=== PATIENT | female | born 1960 | race Caucasian/White ===

== ENCOUNTER 2021-01-02 19:13 | Observation (INO) | payer BC ==
[2021-01-02 19:47] LABS: CHLORIDE,CL 102 mmol/L (98-107); SODIUM,NA 138 mmol/L (136-145)
[2021-01-02] MEDS ORDERED: Ketorolac 15 MG/ML SDV IM ONE (19:47)
[2021-01-02] MEDS ORDERED: Ondansetron 4 MG/2 ML SDV IVPUSH ONE (19:47)
--- NOTE | 2021-01-02 20:45 | EDM.PDOC ---
ED HPI GENERAL MEDICAL PROBLEM - General Chief Complaint: Flank Pain Stated Complaint: kidney stones Time Seen by Provider: 01/02/21 19:40 Source of Information: Reports: Patient History Limitations: Reports: No Limitations - History of Present Illness INITIAL COMMENTS - FREE TEXT/NARRATIVE: Right sided flank and abdominal pain today. Nausea and emesis. Seen at [facility] today and diagnosed with probable kidney stone. Only medicine prescribed was Cipro. No mention of UTI to patient. No medications dispensed for nausea/pain or Flomax. Patient denies fever/chills. No loose stools. No other acute changes reported. 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 - Related Data Allergies Allergy/AdvReac Type Severity Reaction Status Date / Time Penicillins Allergy Rash Verified 01/02/21 19:58 Home Meds: Home Meds Ciprofloxacin HCl [Cipro] 500 mg PO DAILY 01/02/21 [History] lisinopriL [Lisinopril] 10 mg PO DAILY 01/02/21 [History] Past Medical History Cardiovascular History: Reports: Pulmonary Hypertension, Other (See Below) Other Cardiovascular History: "irregular heart beat" Respiratory History: Reports: COPD, Other (See Below) (long time smoker, pulmonary fibrosis on previous xray) Gastrointestinal History: Reports: [employer] History: Reports: Musculoskeletal History: Reports: Arthritis, Other (See Below) Other Musculoskeletal History: scoliosis - Infectious Disease History Infectious Disease History: Reports: Chicken Pox - Past Surgical History HEENT Surgical History: Reports: Tonsillectomy Cardiovascular Surgical History: Reports: None Respiratory Surgical History: Reports: None GI Surgical History: Reports: None Musculoskeletal Surgical History: Reports: None Social & Family History - Tobacco Use Tobacco Use Status *Q: Former Tobacco User Used Tobacco, but Quit: Yes Month/Year Tobacco Last Used: 01/01 - Caffeine Use Caffeine Use: Reports: Soda - Recreational Drug Use Recreational Drug Use: No - Living Situation & Occupation Living situation: Reports: , Occupation: Unemployed ED ROS GENERAL - Review of Systems Review Of Systems: See Below Constitutional: Reports: Decreased Appetite. Denies: Fever, Chills, Weakness, Fatigue, Night Sweats, Diaphoresis HEENT: Reports: Other (no acute changes) Respiratory: Denies: Shortness of Breath, Wheezing, Pleuritic Chest Pain, Cough, Sputum, Hemoptysis Cardiovascular: Denies: Chest Pain, Lightheadedness, Palpitations, Syncope GI/Abdominal: Reports: Abdominal Pain, Decreased Appetite, Nausea, Vomiting. Denies: Bloody Stool, Constipation, Diarrhea, Hematemesis : Reports: Hematuria, Urgency Musculoskeletal: Reports: Other (no acute changes from baseline) Skin: Reports: No Symptoms Neurological: Reports: No Symptoms Psychiatric: Reports: No Symptoms ED EXAM, GENERAL - Physical Exam Exam: See Below Free Text/Narrative:: Looks much older than stated age. Exam Limited By: No Limitations General Appearance: Alert, WD/WN, No Apparent Distress Eye Exam: Bilateral Eye: EOMI, PERRL Ears: Hearing Grossly Normal Nose: No: Nasal Deformity, Nasal Swelling, Nasal Drainage Throat/Mouth: Normal Lips, Normal Voice, No Airway Compromise Head: Atraumatic, Normocephalic Neck: Supple, Non-Tender, Full Range of Motion Respiratory/Chest: No Respiratory Distress, Lungs Clear, Normal Breath Sounds, No Accessory Muscle Use, Chest Non-Tender Cardiovascular: Regular Rate, Rhythm, No Murmur GI/Abdominal: Soft, No Distention, Tender (diffuse abd discomfort with palpation, more prominent right side), Abnormal Bowel Sounds (diminished) (Female) Exam: Deferred Rectal (Female) Exam: Deferred Back Exam: CVA Tenderness (R) Extremities: Normal Inspection, Normal Capillary Refill Neurological: Alert, Oriented, Normal Cognition, No Motor/Sensory Deficits Psychiatric: Normal Affect, Normal Mood Skin Exam: Warm, Dry, Intact, Normal Color Course - Vital Signs Last Recorded V/S: Last Vital Signs Temp 99.2 C H 01/02/21 20:52 Pulse 65 01/02/21 20:52 Resp 16 01/02/21 20:52 BP 151/75 H 01/02/21 20:52 Pulse Ox 99 01/02/21 20:52 - Orders/Labs/Meds Orders: Active Orders 24 hr Category Date Time Status Patient Status [ADT] Routine ADT 01/02/21 21:07 Active Oxygen Therapy [RC] PRN Care 01/02/21 21:10 Active Pulse Oximetry [RC] PRN Care 01/02/21 21:09 Active Strain Urine [RC] ASDIRECTED Care 01/02/21 21:16 Active Up ad Alina [RC] ASDIRECTED Care 01/02/21 21:07 Active Vital Signs [RC] Q6HR Care 01/02/21 21:07 Active Regular Diet [DIET] Diet 01/03/21 Breakfast Active Abdomen Pelvis wo Cont [CT] Stat Exams 01/02/21 19:28 Taken BASIC METABOLIC PANEL,BMP [CHEM] AM Lab 01/03/21 05:15 Ordered CBC WITH AUTO DIFF [HEME] AM Lab 01/03/21 05:15 Ordered CULTURE URINE [RM] Routine Lab 01/02/21 21:12 Ordered MAGNESIUM [CHEM] AM Lab 01/03/21 05:11 Ordered Acetaminophen [TylenoL] Med 01/02/21 21:07 Active 650 mg PO Q4H PRN Calcium Carbonate [Tums] Med 01/02/21 21:07 Active 500 mg PO Q4H PRN HYDROmorphone [Dilaudid] Med 01/02/21 21:16 Active 0.25 mg IVPUSH Q2H PRN Ketorolac [Toradol] Med 01/03/21 02:00 Active 15 mg IVPUSH Q6H Magnesium Hydroxide [Milk of Magnesia] Med 01/02/21 21:07 Active 30 ml PO BID PRN Nicotine [Habitrol] Med 01/02/21 21:15 Active 21 mg TRDERM DAILY Ondansetron [Zofran] Med 01/03/21 02:00 Active 4 mg IVPUSH Q6H Sodium Chloride 0.9% [Normal Saline] 1,000 ml Med 01/02/21 23:30 Active IV ASDIRECTED Sodium Chloride 0.9% [Normal Saline] 500 ml Med 01/02/21 21:15 Active IV .BOLUS Tamsulosin [Flomax] Med 01/03/21 08:30 Active 0.4 mg PO BIDPC bisacodyL [Dulcolax] Med 01/02/21 21:07 Active 10 mg RECTAL DAILY PRN lisinopriL [Prinivil] Med 01/03/21 08:00 Active 10 mg PO DAILY traMADol [Ultram] Med 01/02/21 21:17 Active 50 mg PO Q4H PRN Code Status [Resuscitation Status] Routine Resus Stat 01/02/21 21:18 Ordered Medication Orders Acetaminophen (Acetaminophen 325 Mg Tab) 650 mg PO Q4H PRN PRN Reason: analgesia/fever Bisacodyl (Bisacodyl 10 Mg Supp) 10 mg RECTAL DAILY PRN PRN Reason: Constipation Calcium Carbonate/Glycine (Calcium Carbonate 500 Mg Tab.Chew) 500 mg PO Q4H PRN PRN Reason: Dyspepsia Hydromorphone HCl (Hydromorphone 0.5 Mg/0.5 Ml Syringe) 0.25 mg IVPUSH Q2H PRN PRN Reason: Pain (severe 7-10) Sodium Chloride (Normal Saline) 500 mls @ 250 mls/hr IV .BOLUS [facility] Sodium Chloride (Normal Saline) 1,000 mls @ 125 mls/hr IV ASDIRECTED [facility] Ketorolac Tromethamine (Ketorolac 15 Mg/Ml Sdv) 15 mg IVPUSH Q6H [facility] Stop: 01/07/21 21:13 Lisinopril (Lisinopril 10 Mg Tab) 10 mg PO DAILY [facility] Magnesium Hydroxide (Magnesium Hydroxide 400 Mg/5 Ml Susp 30 Ml Cup) 30 ml PO BID PRN PRN Reason: Constipation Nicotine (Nicotine 21 Mg/24 Hr Patch) 21 mg TRDERM DAILY [facility] Ondansetron HCl (Ondansetron 4 Mg/2 Ml Sdv) 4 mg IVPUSH Q6H [facility] Tamsulosin HCl (Tamsulosin 0.4 Mg Cap.Er) 0.4 mg PO BIDPC [facility] Tramadol HCl (Tramadol 50 Mg Tab) 50 mg PO Q4H PRN PRN Reason: Pain (moderate 4-6) Labs: Laboratory Tests 01/02/21 01/02/21 01/02/21 Range/Units 19:25 19:25 20:02 WBC 13.0 H (4.0-10.2) K/uL RBC 4.93 (3.77-5.09) M/uL Hgb 15.4 (11.7-15.5) g/dL Hct 44.8 (34.0-46.0) % MCV 90.9 (84.0-98.0) fL MCH 31.2 (28.2-33.3) pg MCHC 34.4 (31.7-36.0) g/dL RDW 12.7 (11.2-14.1) % Plt Count 315 (150-350) K/uL Neut % (Auto) 76.5 (45.0-80.0) % Lymph % (Auto) 13.9 (10.0-50.0) % [place] % (Auto) 7.9 (2.0-14.0) % Eos % (Auto) 1.5 (0.0-5.0) % Baso % (Auto) 0.2 (0.0-2.0) % Neut # (Auto) 9.96 H (1.40-7.00) K/uL Lymph # (Auto) 1.81 (0.50-3.50) K/uL [place] # (Auto) 1.03 H (0.00-1.00) K/uL Eos # (Auto) 0.20 (0.00-0.50) K/uL Baso # (Auto) 0.03 (0.00-0.20) K/uL Sodium 138 (136-145) mmol/L Potassium 3.8 (3.5-5.1) mmol/L Chloride 102 (98-107) mmol/L Carbon Dioxide 27.0 (21.0-32.0) mmol/L BUN 19 H (7-18) mg/dL Creatinine 0.99 (0.51-1.17) mg/dL Est Cr Clr Drug Dosing TNP Estimated GFR (MDRD) 58 mL/min Glucose 103 H (70-99) mg/dL Calcium 9.2 (8.5-10.1) mg/dL Total Bilirubin 0.6 (0.2-1.0) mg/dL AST 27 (15-37) U/L ALT 29 (12-78) U/L Alkaline Phosphatase 84 (46-116) IU/L Total Protein 7.3 (6.4-8.2) g/dL Albumin 4.0 (3.4-5.0) g/dL Specimen Type Urinvoid Urine Color Yellow Urine Appearance Slightly cloudy Urine pH 5.5 (5.0-9.0) Ur Specific [place] >= 1.030 (1.005-1.030) Urine Protein Trace H (NEGATIVE) mg/dL Urine Glucose (UA) Negative (NEGATIVE) mg/dL Urine Ketones 40 H (NEGATIVE) mg/dL Urine Occult Blood Moderate H (NEGATIVE) Urine Nitrite Negative (NEGATIVE) Urine Bilirubin Negative (NEGATIVE) Urine Urobilinogen 0.2 (0.2-1.0) E.U./dL Ur Leukocyte Esterase Negative (NEGATIVE) Urine RBC 75-100 H /HPF Urine WBC 0-5 /HPF Ur Epithelial Cells Moderate H /LPF Urine Bacteria Few (NONE TO FEW) /HPF Urine Mucus Moderate H (NEGATIVE) /LPF Meds: Medications Generic Name Dose Route Start Last Admin Trade Name Mel PRN Reason Stop Dose Admin Acetaminophen 650 mg 01/02/21 21:07 Acetaminophen 325 Mg Tab PO Q4H PRN analgesia/fever Bisacodyl 10 mg 01/02/21 21:07 Bisacodyl 10 Mg Supp RECTAL DAILY PRN Constipation Calcium Carbonate/Glycine 500 mg 01/02/21 21:07 Calcium Carbonate 500 Mg Tab.Chew PO Q4H PRN Dyspepsia Hydromorphone HCl 0.25 mg 01/02/21 21:16 Hydromorphone 0.5 Mg/0.5 Ml Syringe IVPUSH Q2H PRN Pain (severe 7-10) Sodium Chloride 500 mls @ 250 mls/hr 01/02/21 21:15 Normal Saline IV .BOLUS [facility] Sodium Chloride 1,000 mls @ 125 mls/hr 01/02/21 23:30 Normal Saline IV ASDIRECTED [facility] Ketorolac Tromethamine 15 mg 01/03/21 02:00 Ketorolac 15 Mg/Ml Sdv IVPUSH 01/07/21 21:13 Q6H [facility] Lisinopril 10 mg 01/03/21 08:00 Lisinopril 10 Mg Tab PO DAILY [facility] Magnesium Hydroxide 30 ml 01/02/21 21:07 Magnesium Hydroxide 400 Mg/5 Ml Susp 30 Ml Cup PO BID PRN Constipation Nicotine 21 mg 01/02/21 21:15 Nicotine 21 Mg/24 Hr Patch TRDERM DAILY [facility] Ondansetron HCl 4 mg 01/03/21 02:00 Ondansetron 4 Mg/2 Ml Sdv IVPUSH Q6H [facility] Tamsulosin HCl 0.4 mg 01/03/21 08:30 Tamsulosin 0.4 Mg Cap.Er PO BIDPC [facility] Tramadol HCl 50 mg 01/02/21 21:17 Tramadol 50 Mg Tab PO Q4H PRN Pain (moderate 4-6) Discontinued Medications Generic Name Dose Route Start Last Admin Trade Name Mel PRN Reason Stop Dose Admin Ketorolac Tromethamine 15 mg 01/02/21 19:47 01/02/21 19:50 Ketorolac 15 Mg/Ml Sdv IM 01/02/21 19:48 15 mg ONETIME ONE Administration Ondansetron HCl 4 mg 01/02/21 19:47 01/02/21 19:50 Ondansetron 4 Mg/2 Ml Sdv IVPUSH 01/02/21 19:48 4 mg ONETIME ONE Administration - Re-Assessments/Exams Free Text/Narrative Re-Assessment/Exam: 01/02/21 21:20 UA showed hematuria without evidence of UTI. UC requested. CBC showed mild WBC elevation, suspect most likely elevated from pain/discomfort. Chem overall unremarkable. CT confirmed 2mm stone in right UVJ with moderate obstructive changes of right kidney. Incidental finding of possible small appendicolith per Radiology. Patient admitted observation for pain/nausea control and IV hydration. Departure - Departure Time of Disposition: 20:45 Disposition: Refer to Observation Condition: Good Clinical Impression: Ureteric colic - Discharge Information *PRESCRIPTION DRUG MONITORING PROGRAM REVIEWED*: Not Applicable *COPY OF PRESCRIPTION DRUG MONITORING REPORT IN PATIENT JAYLYN: Not Applicable Referrals: PCP,None [Primary Care Provider] - Forms: ED Department Discharge Sepsis Event Note (ED) - Evaluation Sepsis Screening Result: No Definite Risk - Focused Exam Vital Signs: Vital Signs Temp Pulse Resp BP Pulse Ox 01/02/21 20:52 99.2 C H 65 16 151/75 H 99 01/02/21 19:30 65 16 156/74 H 98 01/02/21 19:29 36.4 C 60 16 174/96 H 100 - Problem List & Annotations (1) Ureteric colic SNOMED Code(s): 24934383 Code(s): N23 - UNSPECIFIED RENAL COLIC Status: Acute Priority: High Current Visit: Yes Onset Date: ~01/02/21 Annotation/Comment:: 2mm stone with associated moderate obstruction. Hydronephrosis/hydroureter/renal edema noted. Has additional renal stones noted bilaterally noted on report. IV fluids/Toradol/Flomax/Zofran ordered with PRN Tramadol or Dilauded if pain becomes more severe. (2) GERD (gastroesophageal reflux disease) SNOMED Code(s): 181706645 Code(s): K21.9 - GASTRO-ESOPHAGEAL REFLUX DISEASE WITHOUT ESOPHAGITIS Status: Acute Priority: Low Current Visit: No Annotation/Comment:: under good control at this time per patient Qualifiers: Esophagitis presence: esophagitis presence not specified Qualified Code(s): K21.9 - Gastro-esophageal reflux disease without esophagitis (3) COPD (chronic obstructive pulmonary disease) SNOMED Code(s): 74371564 Code(s): J44.9 - CHRONIC OBSTRUCTIVE PULMONARY DISEASE, UNSPECIFIED Status: Acute Priority: High Current Visit: No Onset Date: 11/16/14 Annotation/Comment:: Patient has long smoking history but does not currently require medication for COPD. Has had nebs in past when she had lung infection. Quit smoking yesterday. Qualifiers: COPD type: unspecified COPD Qualified Code(s): J44.9 - Chronic obstructive pulmonary disease, unspecified (4) Hypertension SNOMED Code(s): 00958739 Code(s): I10 - ESSENTIAL (PRIMARY) HYPERTENSION Status: Acute Priority: Medium Current Visit: No Annotation/Comment:: Observe trends. Has been stable per history Qualifiers: Hypertension type: essential hypertension Qualified Code(s): I10 - Essential (primary) hypertension - Problem List Review Problem List Initiated/Reviewed/Updated: Yes - My Orders Last 24 Hours: My Active Orders 01/02/21 19:28 Abdomen Pelvis wo Cont [CT] Stat 01/02/21 21:07 Patient Status [ADT] Routine Up ad Alina [RC] ASDIRECTED Vital Signs [RC] Q6HR Acetaminophen [TylenoL] 650 mg PO Q4H PRN Calcium Carbonate [Tums] 500 mg PO Q4H PRN Magnesium Hydroxide [Milk of Magnesia] 30 ml PO BID PRN bisacodyL [Dulcolax] 10 mg RECTAL DAILY PRN 01/02/21 21:09 Pulse Oximetry [RC] PRN 01/02/21 21:10 Oxygen Therapy [RC] PRN 01/02/21 21:12 CULTURE URINE [RM] Routine 01/02/21 21:15 Nicotine [Habitrol] 21 mg TRDERM DAILY Sodium Chloride 0.9% [Normal Saline] 500 ml IV .BOLUS 01/02/21 21:16 Strain Urine [RC] ASDIRECTED HYDROmorphone [Dilaudid] 0.25 mg IVPUSH Q2H PRN 01/02/21 21:17 traMADol [Ultram] 50 mg PO Q4H PRN 01/02/21 21:18 Code Status [Resuscitation Status] Routine 01/02/21 23:30 Sodium Chloride 0.9% [Normal Saline] 1,000 ml IV ASDIRECTED 01/03/21 02:00 Ketorolac [Toradol] 15 mg IVPUSH Q6H Ondansetron [Zofran] 4 mg IVPUSH Q6H 01/03/21 05:11 MAGNESIUM [CHEM] AM 01/03/21 05:15 BASIC METABOLIC PANEL,BMP [CHEM] AM CBC WITH AUTO DIFF [HEME] AM 01/03/21 Breakfast Regular Diet [DIET] 01/03/21 08:00 lisinopriL [Prinivil] 10 mg PO DAILY 01/03/21 08:30 Tamsulosin [Flomax] 0.4 mg PO BIDPC - Assessment/Plan Admission H&P: Please use this note as an admission H&P Last 24 Hours: My Active Orders 01/02/21 19:28 Abdomen Pelvis wo Cont [CT] Stat 01/02/21 21:07 Patient Status [ADT] Routine Up ad Alina [RC] ASDIRECTED Vital Signs [RC] Q6HR Acetaminophen [TylenoL] 650 mg PO Q4H PRN Calcium Carbonate [Tums] 500 mg PO Q4H PRN Magnesium Hydroxide [Milk of Magnesia] 30 ml PO BID PRN bisacodyL [Dulcolax] 10 mg RECTAL DAILY PRN 01/02/21 21:09 Pulse Oximetry [RC] PRN 01/02/21 21:10 Oxygen Therapy [RC] PRN 01/02/21 21:12 CULTURE URINE [RM] Routine 01/02/21 21:15 Nicotine [Habitrol] 21 mg TRDERM DAILY Sodium Chloride 0.9% [Normal Saline] 500 ml IV .BOLUS 01/02/21 21:16 Strain Urine [RC] ASDIRECTED HYDROmorphone [Dilaudid] 0.25 mg IVPUSH Q2H PRN 01/02/21 21:17 traMADol [Ultram] 50 mg PO Q4H PRN 01/02/21 21:18 Code Status [Resuscitation Status] Routine 01/02/21 23:30 Sodium Chloride 0.9% [Normal Saline] 1,000 ml IV ASDIRECTED 01/03/21 02:00 Ketorolac [Toradol] 15 mg IVPUSH Q6H Ondansetron [Zofran] 4 mg IVPUSH Q6H 01/03/21 05:11 MAGNESIUM [CHEM] AM 01/03/21 05:15 BASIC METABOLIC PANEL,BMP [CHEM] AM CBC WITH AUTO DIFF [HEME] AM 01/03/21 Breakfast Regular Diet [DIET] 01/03/21 08:00 lisinopriL [Prinivil] 10 mg PO DAILY 01/03/21 08:30 Tamsulosin [Flomax] 0.4 mg PO BIDPC Assessment:: as above. Suitable for general supervision. Plan: as above. Anticipate 1-2 day stay depending on if patient is able to pass stone. Is only 2mm which should most likely be able to pass on its own. Patient's care assumed by Cecilia DANG tomorrow.
[2021-01-02] MEDS ORDERED: Magnesium Hydroxide 400 MG/5 ML Susp 30 ML Cup PO PRN (21:07)
[2021-01-02] MEDS ORDERED: Bisacodyl 10 MG Supp RECTAL PRN (21:07)
[2021-01-02] MEDS ORDERED: Acetaminophen 325 MG Tab PO PRN (21:07)
[2021-01-02] MEDS ORDERED: Calcium Carbonate 500 MG Tab.Chew PO PRN (21:07)
[2021-01-02] MEDS ORDERED: Sodium Chloride 0.9% 500 ML IV SCH (21:15)
[2021-01-02] MEDS ORDERED: Nicotine 21 MG/24 Hr Patch TRDERM SCH (21:15)
[2021-01-02] MEDS ORDERED: HYDROmorphone 0.5 MG/0.5 ML Syringe IVPUSH PRN (21:16)
[2021-01-02] MEDS ORDERED: traMADol 50 MG Tab PO PRN (21:17)
[2021-01-02] MEDS ORDERED: Sodium Chloride 0.9% 1,000 ML IV SCH (22:00)
[2021-01-03] MEDS: Sodium Chloride 0.9% 1,000 ML IV SCH ×3 (00:27→11:17)
[2021-01-03] MEDS ORDERED: Ondansetron 4 MG/2 ML SDV IVPUSH SCH (02:00)
[2021-01-03] MEDS: Ketorolac 15 MG/ML SDV IVPUSH SCH ×3 (02:09→13:00)
[2021-01-03] MEDS ORDERED: Ondansetron 4 MG/2 ML SDV IVPUSH PRN (07:13)
[2021-01-03 07:45] LABS: CHLORIDE,CL 108 mmol/L (98-107); SODIUM,NA 141 mmol/L (136-145)
[2021-01-03] MEDS ORDERED: Lisinopril 10 MG Tab PO SCH (08:00)
[2021-01-03] MEDS ORDERED: Tamsulosin 0.4 MG Cap.ER PO SCH (08:30)
[2021-01-03 13:13] VITALS: BP 98/57; PULSE 58
--- NOTE | 2021-01-03 13:49 | PCM.DCSUM1 ---
Discharge Summary - Hospital Course HPI Initial Comments: This patient was admitted into the hospital from the emergency department with a 2 mm right UVJ kidney stone with some upstream hydronephrosis. She was initially seen in the clinic and started on Cipro for concerns of a kidney stone although was giving nothing for pain. She was subsequently sent to the emergency department and was admitted overnight for pain management after finding a CT identified kidney stone at the right UVJ with moderate hydronephro sis. There is no signs of urinary tract infection in the emergency department she was not continued on antibiotics. Diagnosis: Stroke: No - Discharge Data Discharge Date: 01/03/21 Discharge Disposition: Home, Self-Care 01 Condition: Good - Referral to Home Health Primary Care Physician: PCP None - Patient Summary/Data Hospital Course: This patient was admitted overnight for right-sided renal colic with a kidney stone 2 mm at the right UVJ with some moderate upstream hydronephrosis. There is no signs of urinary tract infection. She was placed on as needed NSAIDs fluids and narcotic pain management. She also received Flomax. She was hydrated throughout the night. She rested quite comfortably throughout the night. She feels much better in the morning. She still is having some residual pain but it is well controlled. Her laboratory evaluation is rather unremarkable repeated today. She feels quite a bit better. We will discharge her home with hydrocodone 1 tab every 6 hours as needed pain. Push fluids. Tylenol ibuprofen otherwise for pain. Flomax 1 tablet daily to facilitate with continued passage of the stone. Recheck if anything new or worse. She is comfortable with this plan and her questions are answered. - Patient Instructions Other/Special Instructions: Home today rest. Flomax daily for the next 7 days. Drink plenty of fluids to help keep pushing the kidney stone out. Tylenol and or Ibuprofen as needed for pain. If pain not controlled with above. Hiko 1 tablet every 6 hrs with food as needed for pain. Caution sedation. RX given to the patient #12. Recheck in the clinic in one week. Sooner if any problems or concerns. - Discharge Plan *PRESCRIPTION DRUG MONITORING PROGRAM REVIEWED*: Not Applicable *COPY OF PRESCRIPTION DRUG MONITORING REPORT IN PATIENT JAYLYN: Not Applicable Prescriptions/Med Rec: Tamsulosin HCl [Flomax] 0.4 mg PO DAILY #7 cap.er.24h Hydrocodone/Acetaminophen [Hydrocodone-Acetamin 5-325 mg] 1 each PO Q6H PRN #12 tablet PRN Reason: Pain Home Medications: Home Meds Ciprofloxacin HCl [Cipro] 500 mg PO DAILY 01/02/21 [History] lisinopriL [Lisinopril] 10 mg PO DAILY 01/02/21 [History] Hydrocodone/Acetaminophen [Hydrocodone-Acetamin 5-325 mg] 1 each PO Q6H PRN #12 tablet 01/03/21 [Rx] Tamsulosin HCl [Flomax] 0.4 mg PO DAILY #7 cap.er.24h 01/03/21 [Rx] Forms: ED Department Discharge Referrals: PCP,None [Primary Care Provider] - - Discharge Summary/Plan Comment DC Time >30 min.: No - General Info Date of Service: 01/03/21 Admission Dx/Problem (Free Text: Kidney stone 2 mm UVJ Subjective Update: Patient is rested well throughout the night. She has not had any fever or chills. She has had some waning nausea but nothing that she is asked anything for nausea. No vomiting. She has some recurrent pain but is very well tolerated with the medication that she has been receiving. No difficulty with voiding. No difficulty with stools. She has been eating and drinking appropriately. She feels quite a bit better. Functional Status: Reports: Pain Controlled, Urinating - Review of Systems General: Reports: No Symptoms HEENT: Reports: No Symptoms Pulmonary: Reports: No Symptoms Cardiovascular: Reports: No Symptoms Gastrointestinal: Reports: No Symptoms Genitourinary: Reports: Flank Pain Musculoskeletal: Reports: No Symptoms Skin: Reports: No Symptoms Neurological: Reports: No Symptoms Psychiatric: Reports: No Symptoms - Patient Data Vitals - Most Recent: Last Vital Signs Temp 97.8 F 01/03/21 11:18 Pulse 58 L 01/03/21 11:18 Resp 18 01/03/21 11:18 BP 98/57 L 01/03/21 11:18 Pulse Ox 93 L 01/03/21 11:18 Weight - Most Recent: 136 lb I&O - Last 24 hours: Intake & Output 01/02/21 01/03/21 01/03/21 22:59 06:59 14:59 Intake Total 1439 250 Output Total 50 100 200 Balance -50 1339 50 Lab Results - Last 24 hrs: Laboratory Results - last 24 hr 01/02/21 01/02/2101/02/21 Range/Units 19:25 19:25 20:02 WBC 13.0 H (4.0-10.2) K/uL RBC 4.93 (3.77-5.09) M/uL Hgb 15.4 (11.7-15.5) g/dL Hct 44.8 (34.0-46.0) % MCV 90.9 (84.0-98.0) fL MCH 31.2 (28.2-33.3) pg MCHC 34.4 (31.7-36.0) g/dL RDW 12.7 (11.2-14.1) % Plt Count 315 (150-350) K/uL Neut % (Auto) 76.5 (45.0-80.0) % Lymph % (Auto) 13.9 (10.0-50.0) % [place] % (Auto) 7.9 (2.0-14.0) % Eos % (Auto) 1.5 (0.0-5.0) % Baso % (Auto) 0.2 (0.0-2.0) % Neut # (Auto) 9.96 H (1.40-7.00) K/uL Lymph # (Auto) 1.81 (0.50-3.50) K/uL [place] # (Auto) 1.03 H (0.00-1.00) K/uL Eos # (Auto) 0.20 (0.00-0.50) K/uL Baso # (Auto) 0.03 (0.00-0.20) K/uL Sodium 138 (136-145) mmol/L Potassium 3.8 (3.5-5.1) mmol/L Chloride 102 (98-107) mmol/L Carbon Dioxide 27.0 (21.0-32.0) mmol/L BUN 19 H (7-18) mg/dL Creatinine 0.99 (0.51-1.17) mg/dL Est Cr Clr Drug Dosing TNP Estimated GFR (MDRD) 58 mL/min Glucose 103 H (70-99) mg/dL Calcium 9.2 (8.5-10.1) mg/dL Magnesium (1.8-2.4) mg/dL Total Bilirubin 0.6 (0.2-1.0) mg/dL AST 27 (15-37) U/L ALT 29 (12-78) U/L Alkaline Phosphatase 84 (46-116) IU/L Total Protein 7.3 (6.4-8.2) g/dL Albumin 4.0 (3.4-5.0) g/dL Specimen Type Urinvoid Urine Color Yellow Urine Appearance Slightly cloudy Urine pH 5.5 (5.0-9.0) Ur Specific [place] >= 1.030 (1.005-1.030) Urine Protein Trace H (NEGATIVE) mg/dL Urine Glucose (UA) Negative (NEGATIVE) mg/dL Urine Ketones 40 H (NEGATIVE) mg/dL Urine Occult Blood Moderate H (NEGATIVE) Urine Nitrite Negative (NEGATIVE) Urine Bilirubin Negative (NEGATIVE) Urine Urobilinogen 0.2 (0.2-1.0) E.U./dL Ur Leukocyte Esterase Negative (NEGATIVE) Urine RBC 75-100 H /HPF Urine WBC 0-5 /HPF Ur Epithelial Cells Moderate H /LPF Urine Bacteria Few (NONE TO FEW) /HPF Urine Mucus Moderate H (NEGATIVE) /LPF 01/03/21 01/03/21 Range/Units 07:22 07:22 WBC 8.0 (4.0-10.2) K/uL RBC 4.12 (3.77-5.09) M/uL Hgb 12.9 D (11.7-15.5) g/dL Hct 38.4 (34.0-46.0) % MCV 93.2 (84.0-98.0) fL MCH 31.3 (28.2-33.3) pg MCHC 33.6 (31.7-36.0) g/dL RDW 12.6 (11.2-14.1) % Plt Count 243 (150-350) K/uL Neut % (Auto) 57.2 (45.0-80.0) % Lymph % (Auto) 29.9 (10.0-50.0) % [place] % (Auto) 9.5 (2.0-14.0) % Eos % (Auto) 2.9 (0.0-5.0) % Baso % (Auto) 0.5 (0.0-2.0) % Neut # (Auto) 4.58 (1.40-7.00) K/uL Lymph # (Auto) 2.39 (0.50-3.50) K/uL [place] # (Auto) 0.76 (0.00-1.00) K/uL Eos # (Auto) 0.23 (0.00-0.50) K/uL Baso # (Auto) 0.04 (0.00-0.20) K/uL Sodium 141 (136-145) mmol/L Potassium 3.4 L (3.5-5.1) mmol/L Chloride 108 H (98-107) mmol/L Carbon Dioxide 25.6 (21.0-32.0) mmol/L BUN 21 H (7-18) mg/dL Creatinine 0.92 (0.51-1.17) mg/dL Est Cr Clr Drug Dosing 59.98 Estimated GFR (MDRD) > 60 mL/min Glucose 89 (70-99) mg/dL Calcium 7.8 L (8.5-10.1) mg/dL Magnesium 1.9 (1.8-2.4) mg/dL Total Bilirubin (0.2-1.0) mg/dL AST (15-37) U/L ALT (12-78) U/L Alkaline Phosphatase (46-116) IU/L Total Protein (6.4-8.2) g/dL Albumin (3.4-5.0) g/dL Specimen Type Urine Color Urine Appearance Urine pH (5.0-9.0) Ur Specific [place] (1.005-1.030) Urine Protein (NEGATIVE) mg/dL Urine Glucose (UA) (NEGATIVE) mg/dL Urine Ketones (NEGATIVE) mg/dL Urine Occult Blood (NEGATIVE) Urine Nitrite (NEGATIVE) Urine Bilirubin (NEGATIVE) Urine Urobilinogen (0.2-1.0) E.U./dL Ur Leukocyte Esterase (NEGATIVE) Urine RBC /HPF Urine WBC /HPF Ur Epithelial Cells /LPF Urine Bacteria (NONE TO FEW) /HPF Urine Mucus (NEGATIVE) /LPF Med Orders - Current: Current Medications Acetaminophen (Acetaminophen 325 Mg Tab) 650 mg PO Q4H PRN PRN Reason: analgesia/fever Bisacodyl (Bisacodyl 10 Mg Supp) 10 mg RECTAL DAILY PRN PRN Reason: Constipation Calcium Carbonate/Glycine (Calcium Carbonate 500 Mg Tab.Chew) 500 mg PO Q4H PRN PRN Reason: Dyspepsia Hydromorphone HCl (Hydromorphone 0.5 Mg/0.5 Ml Syringe) 0.25 mg IVPUSH Q2H PRN PRN Reason: Pain (severe 7-10) Sodium Chloride (Normal Saline) 1,000 mls @ 125 mls/hr IV ASDIRECTED [facility] Last Admin: 01/03/21 11:17 Dose: 125 mls/hr Documented by: Sodium Chloride (Normal Saline) 1,000 mls @ 250 mls/hr IV .BOLUS [facility] Last Admin: 01/02/21 22:03 Dose: 250 mls/hr Documented by: Ketorolac Tromethamine (Ketorolac 15 Mg/Ml Sdv) 15 mg IVPUSH Q6H [facility] Stop: 01/07/21 21:13 Last Admin: 01/03/21 13:00 Dose: 15 mg Documented by: Lisinopril (Lisinopril 10 Mg Tab) 10 mg PO DAILY [facility] Last Admin: 01/03/21 07:34 Dose: 10 mg Documented by: Magnesium Hydroxide (Magnesium Hydroxide 400 Mg/5 Ml Susp 30 Ml Cup) 30 ml PO BID PRN PRN Reason: Constipation Miscellaneous Information (Remove Patch) 1 ea TRDERM BEDTIME [facility] Nicotine (Nicotine 21 Mg/24 Hr Patch) 21 mg TRDERM BEDTIME [facility] Ondansetron HCl (Ondansetron 4 Mg/2 Ml Sdv) 4 mg IVPUSH Q6H PRN PRN Reason: Nausea/Vomiting Tamsulosin HCl (Tamsulosin 0.4 Mg Cap.Er) [facility] [facility] Last Admin: 01/03/21 07:34 Dose: 0.4 mg Documented by: Tramadol HCl (Tramadol 50 Mg Tab) 50 mg PO Q4H PRN PRN Reason: Pain (moderate 4-6) Discontinued Medications Sodium Chloride (Normal Saline) 500 mls @ 250 mls/hr IV .BOLUS [facility] Ketorolac Tromethamine (Ketorolac 15 Mg/Ml Sdv) 15 mg IM ONETIME ONE Stop: 01/02/21 19:48 Last Admin: 01/02/21 19:50 Dose: 15 mg Documented by: Nicotine (Nicotine 21 Mg/24 Hr Patch) 21 mg TRDERM DAILY [facility] Last Admin: 01/02/21 21:48 Dose: 21 mg Documented by: Ondansetron HCl (Ondansetron 4 Mg/2 Ml Sdv) 4 mg IVPUSH ONETIME ONE Stop: 01/02/21 19:48 Last Admin: 01/02/21 19:50 Dose: 4 mg Documented by: Ondansetron HCl (Ondansetron 4 Mg/2 Ml Sdv) 4 mg IVPUSH Q6H [facility] Last Admin: 01/03/21 02:09 Dose: 4 mg Documented by: - Exam General: Reports: Alert, Oriented HEENT: Reports: Pupils Equal, Pupils Reactive Neck: Reports: Supple Lungs: Reports: Clear to Auscultation, Normal Respiratory Effort GI/Abdominal Exam: Normal Bowel Sounds, Soft, Non-Tender (Female) Exam: Deferred Rectal (Female) Exam: Deferred Back Exam: Denies: CVA Tenderness (L), CVA Tenderness (R), Paraspinal Tenderness, Vertebral Tenderness Extremities: Normal Inspection, Normal Range of Motion, Normal Capillary Refill Skin: Reports: Warm, Dry, Intact, Cool Neurological: Reports: No New Focal Deficit Psy/Mental Status: Reports: Alert, Normal Affect, Normal Mood
[2021-01-03] MEDS ORDERED: Nicotine 21 MG/24 Hr Patch TRDERM SCH (20:00)
== END 2021-01-03 15:30 | disposition home or self-care (01) ==
LOC: LL.ED 19:13 → LL.MS 20:43
PROVIDERS: ADMIT Emergency Medicine; ATTEND Emergency Medicine
DX: N13.2 Hydronephrosis with renal and ureteral calculous obstruction (principal); I10 Essential (primary) hypertension; J44.9 Chronic obstructive pulmonary disease, unspecified; K21.9 Gastro-esophageal reflux disease without esophagitis; I27.20 Pulmonary hypertension, unspecified; Z88.0 Allergy status to penicillin; Z79.899 Other long term (current) drug therapy; Z98.890 Other specified postprocedural states; Z87.891 Personal history of nicotine dependence
CPT/HCPCS: 36415; 74176; 80048; 80053; 81001; 83735; 85025; 87086; 96372; 96374; 96375; 96376; 99285; A9270; G0378; J1885; J2405; J7030; 99217; 99220

== ENCOUNTER 2021-05-06 02:04 | Emergency (ER) | payer BC ==
[2021-05-06 02:32] VITALS: BP 151/88; PULSE 82
--- NOTE | 2021-05-06 02:42 | EDM.PDOC ---
ED HPI GENERAL MEDICAL PROBLEM - General Chief Complaint: Flank Pain Stated Complaint: Kidney stones Time Seen by Provider: 05/06/21 02:30 Source of Information: Reports: Patient History Limitations: Reports: No Limitations - History of Present Illness INITIAL COMMENTS - FREE TEXT/NARRATIVE: She is seen in the emergency department for evaluation of pain in the left flank. She reports a constant 8/10 pain in the left kidney region. Pain started about 2 hours ago. Pain has decreased a little bit at this time. Positive nausea and vomiting. No fever or chills. No nasal congestion or stuffy head. No cough. No other recent illness. She did have kidney stones on the right side in December of this year that required surgical removal. She has a history of hypertension, COPD and GERD. left flank Pain Score (Numeric/FACES): 8 - Related Data Allergies Allergy/AdvReac Type Severity Reaction Status Date / Time Penicillins Allergy Rash Verified 05/06/21 02:20 shellfish derived Allergy Cannot Verified 05/06/21 02:20 Remember seafood Allergy Cannot Uncoded 05/06/21 02:20 Remember Home Meds: Home Meds lisinopriL [Lisinopril] 10 mg PO DAILY 01/02/21 [History] Past Medical History Cardiovascular History: Reports: Pulmonary Hypertension, Other (See Below) Other Cardiovascular History: "irregular heart beat" Respiratory History: Reports: COPD, Other (See Below) (long time smoker, pulmonary fibrosis on previous xray) 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: Musculoskeletal History: Reports: Arthritis, Other (See Below) Other Musculoskeletal History: scoliosis - Infectious Disease History Infectious Disease History: Reports: Chicken Pox - Past Surgical History HEENT Surgical History: Reports: Tonsillectomy Cardiovascular Surgical History: Reports: None Respiratory Surgical History: Reports: None GI Surgical History: Reports: None Musculoskeletal Surgical History: Reports: None Social & Family History - Caffeine Use Caffeine Use: Reports: Soda - Living Situation & Occupation Living situation: Reports: , Occupation: Unemployed ED ROS GENERAL - Review of Systems Review Of Systems: See Below Constitutional: Denies: Fever, Chills HEENT: Reports: No Symptoms Respiratory: Denies: Shortness of Breath, Cough Cardiovascular: Denies: Chest Pain, Palpitations GI/Abdominal: Reports: Nausea, Vomiting. Denies: Abdominal Pain, Diarrhea : Reports: Flank Pain. Denies: Dysuria, Frequency, Hematuria, Urgency Neurological: Denies: Dizziness Psychiatric: Denies: Anxiety, Confusion ED EXAM, GENERAL - Physical Exam Exam: See Below Exam Limited By: No Limitations General Appearance: Alert, WD/WN, No Apparent Distress Respiratory/Chest: No Respiratory Distress, Lungs Clear, Normal Breath Sounds Cardiovascular: Regular Rate, Rhythm, No Murmur GI/Abdominal: Normal Bowel Sounds, Soft, Non-Tender, No Organomegaly Back Exam: CVA Tenderness (L). No: CVA Tenderness (R) Course - Vital Signs Last Recorded V/S: Last Vital Signs Temp 36.2 C 05/06/21 02:15 Pulse 82 05/06/21 02:15 Resp 16 05/06/21 02:15 BP 151/88 H 05/06/21 02:15 Pulse Ox 94 L 05/06/21 02:15 - Orders/Labs/Meds Orders: Active Orders 24 hr Category Date Time Status Abdomen Pelvis wo Cont [CT] Stat Exams 05/06/21 03:05 Ordered Sodium Chloride 0.9% [Saline Flush] Med 05/06/21 02:21 Active 10 ml FLUSH ASDIRECTED PRN Saline Lock Insert [OM.PC] Routine Oth 05/06/21 02:21 Ordered Medication Orders Sodium Chloride (Sodium Chloride 0.9% 10 Ml Syringe) 10 ml FLUSH ASDIRECTED PRN PRN Reason: Keep Vein Open Last Admin: 05/06/21 03:09 Dose: 10 ml Documented by: MARIBEL Labs: Laboratory Tests 05/06/21 05/06/21 05/06/21 Range/Units 02:21 02:45 02:45 WBC 8.9 (4.0-10.2) K/uL RBC 4.93 (3.77-5.09) M/uL Hgb 15.2 D (11.7-15.5) g/dL Hct 44.7 (34.0-46.0) % MCV 90.7 (84.0-98.0) fL MCH 30.8 (28.2-33.3) pg MCHC 34.0 (31.7-36.0) g/dL RDW 13.1 (11.2-14.1) % Plt Count 303 (150-350) K/uL Neut % (Auto) 72.9 (45.0-80.0) % Lymph % (Auto) 17.3 (10.0-50.0) % [place] % (Auto) 7.1 (2.0-14.0) % Eos % (Auto) 2.1 (0.0-5.0) % Baso % (Auto) 0.6 (0.0-2.0) % Neut # (Auto) 6.46 (1.40-7.00) K/uL Lymph # (Auto) 1.53 (0.50-3.50) K/uL [place] # (Auto) 0.63 (0.00-1.00) K/uL Eos # (Auto) 0.19 (0.00-0.50) K/uL Baso # (Auto) 0.05 (0.00-0.20) K/uL Sodium 144 (136-145) mmol/L Potassium 3.6 (3.5-5.1) mmol/L Chloride 107 (98-107) mmol/L Carbon Dioxide 27.8 (21.0-32.0) mmol/L Anion Gap 9.2 (7-15) meq/L BUN 19 H (7-18) mg/dL Creatinine 0.63 (0.51-1.17) mg/dL Est Cr Clr Drug Dosing 90.01 mL/min Estimated GFR (MDRD) > 60 mL/min Glucose 109 H (70-99) mg/dL Calcium 9.0 (8.5-10.1) mg/dL Total Bilirubin 0.4 (0.2-1.0) mg/dL AST 14 L (15-37) U/L ALT 31 (12-78) U/L Alkaline Phosphatase 79 (46-116) IU/L Total Protein 7.0 (6.4-8.2) g/dL Albumin 3.9 (3.4-5.0) g/dL Specimen Type Urincc Urine Color Brown Urine Appearance Cloudy Urine pH 5.5 (5.0-9.0) Ur Specific [place] >= 1.030 (1.005-1.030) Urine Protein 100 H (NEGATIVE) mg/dL Urine Glucose (UA) Negative (NEGATIVE) mg/dL Urine Ketones 15 H (NEGATIVE) mg/dL Urine Occult Blood Large H (NEGATIVE) Urine Nitrite Negative (NEGATIVE) Urine Bilirubin Small H (NEGATIVE) Urine Urobilinogen 1.0 (0.2-1.0) E.U./dL Ur Leukocyte Esterase Negative (NEGATIVE) Urine RBC >100 H /HPF Urine WBC 0-5 /HPF Ur Epithelial Cells Moderate H /LPF Urine Bacteria Few (NONE TO FEW) /HPF Meds: Medications Generic Name Dose Route Start Last Admin Trade Name Mel PRN Reason Stop Dose Admin Sodium Chloride 10 ml 05/06/21 02:21 05/06/21 03:09 Sodium Chloride 0.9% 10 Ml Syringe FLUSH 10 ml ASDIRECTED PRN Administration Keep Vein Open Discontinued Medications Generic Name Dose Route Start Last Admin Trade Name Mel PRN Reason Stop Dose Admin Sodium Chloride 1,000 mls @ 999 mls/hr 05/06/21 02:56 05/06/21 02:57 Normal Saline IV 05/06/21 03:56 999 mls/hr .BOLUS ONE Administration Morphine Sulfate 4 mg 05/06/21 03:04 05/06/21 03:09 Morphine 4 Mg/Ml Syringe IVPUSH 05/06/21 03:05 4 mg ONETIME ONE Administration Ondansetron HCl 4 mg 05/06/21 03:04 05/06/21 03:09 Ondansetron 4 Mg/2 Ml Sdv IVPUSH 05/06/21 03:05 4 mg ONETIME ONE Administration - Re-Assessments/Exams Free Text/Narrative Re-Assessment/Exam: 05/06/21 03:46 She was given 4 mg of morphine and a liter of normal saline and her pain had resolved. CT scan was ordered of the abdomen pelvis, but unfortunately radiology was not able to get the CT scanner working. Her history and lab findings are certainly consistent with kidney stone, especially given her history of stones on the other side earlier this year. Decision is made to discharge to home with Tylenol 3 to use as needed for pain and Phenergan as needed for nausea. Departure - Departure Time of Disposition: 03:52 Disposition: Home, Self-Care 01 Condition: Good Clinical Impression: Renal calculus, left - Discharge Information *PRESCRIPTION DRUG MONITORING PROGRAM REVIEWED*: Yes *COPY OF PRESCRIPTION DRUG MONITORING REPORT IN PATIENT JAYLYN: No Instructions: Renal Colic, [id number], Promethazine tablets, Acetaminophen; Codeine tablets Referrals: PCP,Unknown [Primary Care Provider] - Forms: ED Department Discharge Additional Instructions: Push fluids. Tylenol with codeine. 1 to 2 tablets up to 3 times daily as needed for pain. Phenergan 25 mg 1 tablet every 6 hours as needed for nausea. Follow-up if not improving. Sepsis Event Note (ED) - Focused Exam Vital Signs: Vital Signs Temp Pulse Resp BP Pulse Ox 05/06/21 02:15 36.2 C 82 16 151/88 H 94 L - Problem List & Annotations (1) Renal calculus, left SNOMED Code(s): 77103674 Code(s): N20.0 - CALCULUS OF KIDNEY Status: Acute Current Visit: Yes - My Orders Last 24 Hours: My Active Orders 05/06/21 02:21 Sodium Chloride 0.9% [Saline Flush] 10 ml FLUSH ASDIRECTED PRN Saline Lock Insert [OM.PC] Routine 05/06/21 03:05 Abdomen Pelvis wo Cont [CT] Stat - Assessment/Plan Last 24 Hours: My Active Orders 05/06/21 02:21 Sodium Chloride 0.9% [Saline Flush] 10 ml FLUSH ASDIRECTED PRN Saline Lock Insert [OM.PC] Routine 05/06/21 03:05 Abdomen Pelvis wo Cont [CT] Stat Plan: Push fluids. Tylenol with codeine. 1 to 2 tablets up to 3 times daily as needed for pain. Phenergan 25 mg 1 tablet every 6 hours as needed for nausea. Follow-up if not improving.
[2021-05-06] MEDS: Sodium Chloride 0.9% 1,000 ML IV ONE (02:57)
[2021-05-06 03:09] LABS: ANION GAP 9.2 meq/L (7-15); CHLORIDE,CL 107 mmol/L (98-107); SODIUM,NA 144 mmol/L (136-145)
[2021-05-06] MEDS: Sodium Chloride 0.9% 10 ML Syringe FLUSH PRN (03:09)
[2021-05-06] MEDS: Ondansetron 4 MG/2 ML SDV IVPUSH ONE (03:09)
[2021-05-06] MEDS: Morphine 4 MG/ML Syringe IVPUSH ONE (03:09)
== END 2021-05-06 04:30 | disposition home or self-care (01) ==
LOC: LL.ED 02:04
DX: N20.0 Calculus of kidney (principal); J44.9 Chronic obstructive pulmonary disease, unspecified; I10 Essential (primary) hypertension; Z88.0 Allergy status to penicillin; Z91.013 Allergy to seafood; Z79.899 Other long term (current) drug therapy
CPT/HCPCS: 36415; 80053; 81001; 85025; 96374; 96375; 99284; J2270; J2405; J7030

== ENCOUNTER 2021-08-21 23:04 | Emergency (ER) | payer BC ==
[2021-08-21] MEDS ORDERED: Ondansetron 4 MG/2 ML SDV IVPUSH ONE (23:07)
[2021-08-21] MEDS ORDERED: Lactated Ringers 1,000 ML IV SCH (23:15)
[2021-08-21 23:50] LABS: RESPIRATORY SYNCYTIAL VIR NAA NEGATIVE (NEGATIVE)
[2021-08-21 23:50] LABS: CHLORIDE,CL 105 mmol/L (98-107); SODIUM,NA 143 mmol/L (136-145)
[2021-08-21 23:56] LABS: CORONAVIRUS COVID-19 NAA POSITIVE (NEGATIVE)
[2021-08-22] LABS: ANION GAP 15.7 meq/L (7-15)
[2021-08-22] MEDS ORDERED: cefTRIAXone 2 GM Vial IVPUSH ONE (00:07)
[2021-08-22] MEDS ORDERED: Ketorolac 30 MG/ML SDV IVPUSH ONE (00:09)
--- NOTE | 2021-08-22 00:11 | EDM.PDOC ---
ED HPI GENERAL MEDICAL PROBLEM - General Chief Complaint: General Stated Complaint: NAUSE/VOMITING/ZULETA/CONGESTION Time Seen by Provider: 08/21/21 23:05 Source of Information: Reports: Patient History Limitations: Reports: No Limitations - History of Present Illness INITIAL COMMENTS - FREE TEXT/NARRATIVE: Pt. presents to ER with complaints of cough, congestion, nausea, vomiting, headache, myalgia, and arthralgia. Pt. states that she started feeling poorly about 3 days ago. She states that she initially had a productive cough, but states that it isn't anymore. Denies any shortness of breath. No chest pain. Denies any palpitations. Pt. states that she is unable to hold down fluids. She denies any diarrhea. She complains of severe headache and myalgias that started within the past day and a half. Pt. denies any ill contacts. She states that she has had a [place] and [place] covid vaccine in January. She denies any abdominal pain. She states that she is passing gas. Denies any melena, hematochezia, or hematemesis. Onset Date: 08/25/21 Location: Reports: Head, Chest, Generalized Associated Symptoms: Reports: Cough, Malaise, Nausea/Vomiting. Denies: Confusion, Chest Pain, Rash, Shortness of Breath, Syncope, Weakness Headache Pain Score (Numeric/FACES): 8 - Related Data Allergies Allergy/AdvReac Type Severity Reaction Status Date / Time Penicillins Allergy Rash Verified 08/21/21 23:51 shellfish derived Allergy Cannot Verified 08/21/21 23:51 Remember seafood Allergy Cannot Uncoded 08/21/21 23:51 Remember Home Meds: Home Meds Lisinopril/Hydrochlorothiazide [Lisinopril-Hctz 10-12.5 mg Tab] 1 each PO DAILY 08/21/21 [History] Sulfamethoxazole/Trimethoprim [Bactrim Ds Tablet] 1 each PO BID 6 Days #12 tablet 08/22/21 [Rx] Past Medical History Cardiovascular History: Reports: Pulmonary Hypertension, Other (See Below) Other Cardiovascular History: "irregular heart beat" Respiratory History: Reports: COPD, Other (See Below) Gastrointestinal History: Reports: GERD Genitourinary History: Reports: Renal Calculus 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: Reports: Musculoskeletal History: Reports: Arthritis, Other (See Below) Other Musculoskeletal History: scoliosis - Infectious Disease History Infectious Disease History: Reports: Chicken Pox - Past Surgical History HEENT Surgical History: Reports: Tonsillectomy Cardiovascular Surgical History: Reports: None Respiratory Surgical History: Reports: None GI Surgical History: Reports: None Female Surgical History: Reports: Ureteral Stent Musculoskeletal Surgical History: Reports: None Social & Family History - Tobacco Use Tobacco Use Status *Q: Current Every Day Tobacco User Years of Tobacco use: 35 Packs/Tins Daily: 0.5 Used Tobacco, but Quit: No Second Hand Smoke Exposure: No - Caffeine Use Caffeine Use: Reports: Soda Other Caffeine Use: decaff coffee - Recreational Drug Use Recreational Drug Use: No - Living Situation & Occupation Living situation: Reports: , Occupation: Unemployed ED ROS GENERAL - Review of Systems Review Of Systems: See Below Constitutional: Reports: No Symptoms HEENT: Reports: No Symptoms Respiratory: Reports: Cough Cardiovascular: Reports: No Symptoms Endocrine: Reports: No Symptoms GI/Abdominal: Reports: Decreased Appetite, Flatus, Nausea, Vomiting. Denies: Abdominal Pain, Constipation, Diarrhea, Distension, Hematemesis, Hematochezia, Melena, Mucous in Stool : Reports: No Symptoms Musculoskeletal: Reports: Joint Pain, Muscle Pain, Muscle Stiffness Skin: Reports: No Symptoms Neurological: Reports: No Symptoms Psychiatric: Reports: No Symptoms Hematologic/Lymphatic: Reports: No Symptoms Immunologic: Reports: No Symptoms ED EXAM, GENERAL - Physical Exam Exam: See Below Exam Limited By: No Limitations General Appearance: Alert, WD/WN, No Apparent Distress Eye Exam: Bilateral Eye: EOMI, PERRL Head: Atraumatic, Normocephalic Neck: Normal Inspection, Supple, Non-Tender, Full Range of Motion Respiratory/Chest: No Respiratory Distress, Lungs Clear, Normal Breath Sounds, No Accessory Muscle Use, Chest Non-Tender Cardiovascular: Regular Rate, Rhythm, No Edema, No JVD Peripheral Pulses: 4+: Radial (L) GI/Abdominal: Normal Bowel Sounds, Soft, Non-Tender, No Organomegaly, No Distention, No Mass (Female) Exam: Deferred Rectal (Female) Exam: Deferred Back Exam: Normal Inspection, Full Range of Motion Extremities: Normal Inspection, Normal Range of Motion, Non-Tender, No Pedal Edema, Normal Capillary Refill Neurological: Alert, Oriented, CN II-XII Intact, Normal Cognition, Normal Gait, Normal Reflexes, No Motor/Sensory Deficits Psychiatric: Normal Affect, Normal Mood Lymphatic: No Adenopathy Course - Vital Signs Last Recorded V/S: Last Vital Signs Temp 37.2 C 08/21/21 23:05 Pulse 104 H 08/21/21 23:05 Resp 18 08/21/21 23:05 BP 142/67 H 08/21/21 23:05 Pulse Ox 97 08/21/21 23:05 - Orders/Labs/Meds Orders: Active Orders 24 hr Category Date Time Status Peripheral IV Care [RC] . DIRECTED Care 08/21/21 23:07 Active Abdomen Series w Chest 1V [CR] Stat Exams 08/21/21 23:11 Taken CULTURE BLOOD [BC] Stat Lab 08/21/21 23:20 Received CULTURE BLOOD [BC] Stat Lab 08/21/21 23:24 Received CULTURE URINE [RM] Stat Lab 08/21/21 23:49 Received Lactated Ringers [Ringers, Lactated] 1,000 ml Med 08/21/21 23:15 Active IV ASDIRECTED Sodium Chloride 0.9% [Saline Flush] Med 08/21/21 23:06 Active 10 ml FLUSH ASDIRECTED PRN Blood Culture x2 Reflex Set [OM.PC] Stat Oth 08/21/21 23:13 Ordered Peripheral IV Insertion Adult [OM.PC] Routine Oth 08/21/21 23:06 Ordered Medication Orders Lactated Ringer's (Ringers, Lactated) 1,000 mls @ 500 mls/hr IV ASDIRECTED ELKE Last Admin: 08/21/21 23:29 Dose: 500 mls/hr Documented by: NANCY Sodium Chloride (Sodium Chloride 0.9% 10 Ml Syringe) 10 ml FLUSH ASDIRECTED PRN PRN Reason: Keep Vein Open Last Admin: 08/22/21 00:38 Dose: 10 ml Documented by: Labs: Laboratory Tests 08/21/21 08/21/21 08/21/21 Range/Units 23:10 23:24 23:24 WBC 5.0 (4.0-10.2) K/uL RBC 4.79 (3.77-5.09) M/uL Hgb 14.7 (11.7-15.5) g/dL Hct 44.3 (34.0-46.0) % MCV 92.5 (84.0-98.0) fL MCH 30.7 (28.2-33.3) pg MCHC 33.2 (31.7-36.0) g/dL RDW 13.3 (11.2-14.1) % Plt Count 212 D (150-350) K/uL Neut % (Auto) 72.2 (45.0-80.0) % Lymph % (Auto) 14.1 (10.0-50.0) % [place] % (Auto) 12.9 (2.0-14.0) % Eos % (Auto) 0.2 (0.0-5.0) % Baso % (Auto) 0.6 (0.0-2.0) % Neut # (Auto) 3.58 (1.40-7.00) K/uL Lymph # (Auto) 0.70 (0.50-3.50) K/uL [place] # (Auto) 0.64 (0.00-1.00) K/uL Eos # (Auto) 0.01 (0.00-0.50) K/uL Baso # (Auto) 0.03 (0.00-0.20) K/uL PT 11.0 (9.6-11.3) SEC INR 1.1 Sodium (136-145) mmol/L Potassium (3.5-5.1) mmol/L Chloride (98-107) mmol/L Carbon Dioxide (21.0-32.0) mmol/L Anion Gap (7-15) meq/L BUN (7-18) mg/dL Creatinine (0.51-1.17) mg/dL Est Cr Clr Drug Dosing Estimated GFR (MDRD) mL/min Glucose (70-99) mg/dL Lactic Acid (0.4-2.0) mmol/L Calcium (8.5-10.1) mg/dL Phosphorus (2.6-4.7) mg/dL Magnesium (1.8-2.4) mg/dL Total Bilirubin (0.2-1.0) mg/dL AST (15-37) U/L ALT (12-78) U/L Alkaline Phosphatase (46-116) IU/L Lactate Dehydrogenase (81-234) U/L C-Reactive Protein (<=0.9) mg/dL Total Protein (6.4-8.2) g/dL Albumin (3.4-5.0) g/dL Amylase (25-115) U/L Lipase (73-393) U/L Specimen Type Urine Color Urine Appearance Urine pH (5.0-9.0) Ur Specific [place] (1.005-1.030) Urine Protein (NEGATIVE) mg/dL Urine Glucose (UA) (NEGATIVE) mg/dL Urine Ketones (NEGATIVE) mg/dL Urine Occult Blood (NEGATIVE) Urine Nitrite (NEGATIVE) Urine Bilirubin (NEGATIVE) Urine Urobilinogen (0.2-1.0) E.U./dL Ur Leukocyte Esterase (NEGATIVE) Urine RBC /HPF Urine WBC /HPF Ur Epithelial Cells /LPF Urine Bacteria (NONE TO FEW) /HPF Influenza Type A RNA Negative (NEGATIVE) RSV RNA (INAAT) Negative (NEGATIVE) Influenza Type B RNA Negative (NEGATIVE) SARS-CoV-2 RNA (ELICIA) Positive H (NEGATIVE) 08/21/21 08/21/21 08/21/21 Range/Units 23:24 23:24 23:49 WBC (4.0-10.2) K/uL RBC (3.77-5.09) M/uL Hgb (11.7-15.5) g/dL Hct (34.0-46.0) % MCV (84.0-98.0) fL MCH (28.2-33.3) pg MCHC (31.7-36.0) g/dL RDW (11.2-14.1) % Plt Count (150-350) K/uL Neut % (Auto) (45.0-80.0) % Lymph % (Auto) (10.0-50.0) % [place] % (Auto) (2.0-14.0) % Eos % (Auto) (0.0-5.0) % Baso % (Auto) (0.0-2.0) % Neut # (Auto) (1.40-7.00) K/uL Lymph # (Auto) (0.50-3.50) K/uL [place] # (Auto) (0.00-1.00) K/uL Eos # (Auto) (0.00-0.50) K/uL Baso # (Auto) (0.00-0.20) K/uL PT (9.6-11.3) SEC INR Sodium 143 (136-145) mmol/L Potassium 3.2 L (3.5-5.1) mmol/L Chloride 105 (98-107) mmol/L Carbon Dioxide 25.5 (21.0-32.0) mmol/L Anion Gap 15.7 H (7-15) meq/L BUN 11 (7-18) mg/dL Creatinine 0.70 (0.51-1.17) mg/dL Est Cr Clr Drug Dosing TNP Estimated GFR (MDRD) > 60 mL/min Glucose 105 H (70-99) mg/dL Lactic Acid 1.2 (0.4-2.0) mmol/L Calcium 8.6 (8.5-10.1) mg/dL Phosphorus 2.9 (2.6-4.7) mg/dL Magnesium 1.9 (1.8-2.4) mg/dL Total Bilirubin 0.5 (0.2-1.0) mg/dL AST 15 (15-37) U/L ALT 29 (12-78) U/L Alkaline Phosphatase 76 (46-116) IU/L Lactate Dehydrogenase 165 (81-234) U/L C-Reactive Protein 4.7 H (<=0.9) mg/dL Total Protein 7.1 (6.4-8.2) g/dL Albumin 3.9 (3.4-5.0) g/dL Amylase 39 (25-115) U/L Lipase 54 L (73-393) U/L Specimen Type Urincc Urine Color Yellow Urine Appearance Cloudy Urine pH 5.5 (5.0-9.0) Ur Specific [place] >= 1.030 (1.005-1.030) Urine Protein 30 H (NEGATIVE) mg/dL Urine Glucose (UA) Negative (NEGATIVE) mg/dL Urine Ketones 80 H (NEGATIVE) mg/dL Urine Occult Blood Moderate H (NEGATIVE) Urine Nitrite Positive H (NEGATIVE) Urine Bilirubin Negative (NEGATIVE) Urine Urobilinogen 0.2 (0.2-1.0) E.U./dL Ur Leukocyte Esterase Negative (NEGATIVE) Urine RBC 0-5 /HPF Urine WBC 5-10 H /HPF Ur Epithelial Cells Few /LPF Urine Bacteria Many H (NONE TO FEW) /HPF Influenza Type A RNA (NEGATIVE) RSV RNA (INAAT) (NEGATIVE) Influenza Type B RNA (NEGATIVE) SARS-CoV-2 RNA (ELICIA) (NEGATIVE) Meds: Medications Generic Name Dose Route Start Last Admin Trade Name Mel PRN Reason Stop Dose Admin Lactated Ringer's 1,000 mls @ 500 mls/hr 08/21/21 23:15 08/21/21 23:29 Ringers, Lactated IV 500 mls/hr ASDIRECTED ELKE Administration Sodium Chloride 10 ml 08/21/21 23:06 08/22/21 00:38 Sodium Chloride 0.9% 10 Ml Syringe FLUSH 10 ml ASDIRECTED PRN Administration Keep Vein Open Discontinued Medications Generic Name Dose Route Start Last Admin Trade Name Freq PRN Reason Stop Dose Admin Ceftriaxone Sodium 2 gm 08/22/21 00:07 08/22/21 00:28 Ceftriaxone 2 Gm Vial IVPUSH 08/22/21 00:08 2 gm ONETIME ONE Administration Ketorolac Tromethamine 30 mg 08/22/21 00:09 08/22/21 00:27 Ketorolac 30 Mg/Ml Sdv IVPUSH 08/22/21 00:10 30 mg ONETIME ONE Administration Ondansetron HCl 4 mg 08/21/21 23:07 08/21/21 23:39 Ondansetron 4 Mg/2 Ml Sdv IVPUSH 08/21/21 23:08 4 mg ONETIME ONE Administration - Radiology Interpretation Free Text/Narrative:: bilateral diffuse opacification bilaterally. - Re-Assessments/Exams Free Text/Narrative Re-Assessment/Exam: IV access was established. She was given a liter of lactated ringers in ER. She was paused and IV was flushed with NS before and after she was given IV rocephin for UTI. She was also given zofran 4mg IV for nausea/vomiting. Pt. also given toradol 30mg IV for myalgias/arthralgias. Departure - Departure Time of Disposition: 01:00 Disposition: Home, Self-Care 01 Clinical Impression: Coronavirus infection, UTI (urinary tract infection), Dehydration - Discharge Information Prescriptions: Sulfamethoxazole/Trimethoprim [Bactrim Ds Tablet] 1 each PO BID 6 Days #12 tablet Instructions: COVID-19 Frequently Asked Questions, Urinary Tract Infection, Adult, Sulfamethoxazole; Trimethoprim, SMX-[id number] tablets Referrals: Cris Singleton, [employer] [Primary Care Provider] - Forms: ED Department Discharge Additional Instructions: Home to rest. Dept. of Health will be in contact with you regarding how long you need to quarantine. You will be contacted by the hospital tomorrow if you are interested in having either BAM or Regeneron infusion for covid 19. Bactrim DS 1 twice daily for 6 days Zofran ODT 1 every 6 hours for nausea/vomiting Ibuprofen 200mg 2 every 4-6 hours as needed for fever/discomfort Recheck in clinic in 2 weeks. Return to ER if you have trouble breathing, are unable to hold down fluids, confusion, or decreased level of consciousness. Sepsis Event Note (ED) - Focused Exam Vital Signs: Vital Signs Temp Pulse Resp BP Pulse Ox 08/21/21 23:05 37.2 C 104 H 18 142/67 H 97 - Problem List Review Problem List Initiated/Reviewed/Updated: Yes - My Orders Last 24 Hours: My Active Orders 08/21/21 23:06 Sodium Chloride 0.9% [Saline Flush] 10 ml FLUSH ASDIRECTED PRN Peripheral IV Insertion Adult [OM.PC] Routine 08/21/21 23:07 Peripheral IV Care [RC] . DIRECTED 08/21/21 23:11 Abdomen Series w Chest 1V [CR] Stat 08/21/21 23:13 Blood Culture x2 Reflex Set [OM.PC] Stat 08/21/21 23:15 Lactated Ringers [Ringers, Lactated] 1,000 ml IV ASDIRECTED 08/21/21 23:20 CULTURE BLOOD [BC] Stat 08/21/21 23:24 CULTURE BLOOD [BC] Stat 08/21/21 23:49 CULTURE URINE [RM] Stat - Assessment/Plan Last 24 Hours: My Active Orders 08/21/21 23:06 Sodium Chloride 0.9% [Saline Flush] 10 ml FLUSH ASDIRECTED PRN Peripheral IV Insertion Adult [OM.PC] Routine 08/21/21 23:07 Peripheral IV Care [RC] . DIRECTED 08/21/21 23:11 Abdomen Series w Chest 1V [CR] Stat 08/21/21 23:13 Blood Culture x2 Reflex Set [OM.PC] Stat 08/21/21 23:15 Lactated Ringers [Ringers, Lactated] 1,000 ml IV ASDIRECTED 01/03/22 23:20 CULTURE BLOOD [BC] Stat 08/21/21 23:24 CULTURE BLOOD [BC] Stat 08/21/21 23:49 CULTURE URINE [RM] Stat Plan: Home to rest. Dept. of Health will be in contact with you regarding how long you need to quarantine. You will be contacted by the hospital tomorrow if you are interested in having either BAM or Regeneron infusion for covid 19. Bactrim DS 1 twice daily for 6 days Zofran ODT 1 every 6 hours for nausea/vomiting Ibuprofen 200mg 2 every 4-6 hours as needed for fever/discomfort Recheck in clinic in 2 weeks. Return to ER if you have trouble breathing, are unable to hold down fluids, confusion, or decreased level of consciousness.
[2021-08-22] MEDS: Sodium Chloride 0.9% 10 ML Syringe FLUSH PRN ×2 (00:28→00:38)
[2021-08-22 00:44] VITALS: BP 130/81; PULSE 90
== END 2021-08-22 01:15 | disposition home or self-care (01) ==
LOC: LL.ED 23:04
DX: U07.1 COVID-19 (principal); E86.0 Dehydration; N39.0 Urinary tract infection, site not specified; J44.9 Chronic obstructive pulmonary disease, unspecified; Z72.0 Tobacco use; Z88.0 Allergy status to penicillin; Z91.013 Allergy to seafood; Z79.899 Other long term (current) drug therapy
CPT/HCPCS: 0241U; 36415; 74022; 80053; 81001; 82150; 83605; 83615; 83690; 83735; 84100; 85025; 85610; 86140; 87040; 87086; 87088; 87186; 96374; 96375; 99284; J0696; J1885; J2405; J7120

== ENCOUNTER 2022-11-07 17:12 | Emergency (ER) | payer BC ==
[2022-11-07] MEDS ORDERED: Sodium Chloride 0.9% 10 ML Syringe FLUSH PRN (17:28)
[2022-11-07] MEDS ORDERED: Sodium Chloride 0.9% 1,000 ML IV ONE (17:40)
[2022-11-07] MEDS ORDERED: Ondansetron 4 MG/2 ML SDV ONE (17:45)
[2022-11-07] MEDS ORDERED: Ondansetron 4 MG/2 ML SDV IVPUSH ONE (17:45)
[2022-11-07 18:00] LABS: ANION GAP 9.8 meq/L (7-15)
[2022-11-07 18:13] LABS: CORONAVIRUS COVID-19 NAA POSITIVE (NEGATIVE); RESPIRATORY SYNCYTIAL VIR NAA NEGATIVE (NEGATIVE)
[2022-11-07] MEDS ORDERED: Acetaminophen 500 MG Tab PO ONE (18:17)
[2022-11-07 19:24] VITALS: BP 166/94; PULSE 104
== END 2022-11-07 19:05 | disposition home or self-care (01) ==
LOC: LL.ED 17:12
DX: U07.1 COVID-19 (principal); J44.9 Chronic obstructive pulmonary disease, unspecified; E86.0 Dehydration; R53.1 Weakness; Z88.0 Allergy status to penicillin; Z91.013 Allergy to seafood; Z79.899 Other long term (current) drug therapy
CPT/HCPCS: 0241U; 36415; 71045; 80053; 81001; 82550; 83605; 84484; 85025; 87081; 87086; 87088; 87186; 87430; 93005; 96361; 96374; 99284-25; A9270-GY; J2405; J7030

== ENCOUNTER 2024-05-07 03:01 | Emergency (ER) | payer BC ==
[2024-05-07] MEDS: Sodium Chloride 0.9% 1,000 ML IV ONE ×2 (03:13→04:38)
[2024-05-07] MEDS: Ketorolac 15 MG/ML SDV IVPUSH PRN (03:14)
[2024-05-07] MEDS: Ondansetron 4 MG/2 ML SDV IVPUSH ONE (03:14)
[2024-05-07] MEDS: Sodium Chloride 0.9% 10 ML Syringe FLUSH PRN (03:16)
[2024-05-07] MEDS: Morphine 2 MG/ML SYRINGE IVPUSH ONE (04:10)
[2024-05-07 04:36] LABS: BASOPHILS ABSOLUTE AUTO 0.08 K/uL (0.00-0.20); BASOPHILS PERCENT AUTO 0.9 % (0.0-2.0); EOSINOPHILS ABSOLUTE AUTO 0.33 K/uL (0.00-0.50); EOSINOPHILS PERCENT AUTO 3.9 % (0.0-5.0); HEMATOCRIT 42.9 % (34.0-46.0); HEMOGLOBIN 14.2 g/dL (11.7-15.5); LYMPHOCYTES ABSOLUTE AUTO 3.21 K/uL (0.50-3.50); LYMPHOCYTES PERCENT AUTO 37.7 % (10.0-50.0); MEAN CORPUSCULAR HEMOGLOBIN 30.7 pg (28.2-33.3); MEAN CORPUSCULAR HGB CONC 33.1 g/dL (31.7-36.0); MEAN CORPUSCULAR VOLUME 92.9 fL (84.0-98.0); MONOCYTES PERCENT AUTO 10.6 % (2.0-14.0); NEUTROPHILS PERCENT AUTO 46.9 % (45.0-80.0); PLATELET COUNT,PLT 355 K/uL (150-350); RED BLOOD CELL COUNT 4.62 M/uL (3.77-5.09); RED CELL DISTRIBUTION WIDTH 13.6 % (11.2-14.1); WHITE BLOOD CELL COUNT,WBC 8.5 K/uL (4.0-10.2)
[2024-05-07 04:55] LABS: ALANINE AMINOTRANSFERASE,ALT 28 U/L (12-78); ALBUMIN 3.7 g/dL (3.4-5.0); ALKALINE PHOSPHATASE 78 IU/L (46-116); ASPARTATE AMNIOTRANSFERASE,AST 15 U/L (15-37); BILIRUBIN TOTAL 0.4 mg/dL (0.2-1.0); BLOOD UREA NITROGEN,BUN 18 mg/dL (7-18); CALCIUM 8.9 mg/dL (8.5-10.1); CARBON DIOXIDE,CO2 26.3 mmol/L (21.0-32.0); CHLORIDE,CL 103 mmol/L (98-107); CREATININE 0.88 mg/dL (0.51-1.17); GLUCOSE RANDOM 103 mg/dL (70-99); MAGNESIUM 1.8 mg/dL (1.8-2.4); POTASSIUM,K 3.2 mmol/L (3.5-5.1); SODIUM,NA 139 mmol/L (136-145)
[2024-05-07 04:56] LABS: ANION GAP 12.9 meq/L (7-15); ESTIMATED GFR 74 mL/min (>=60)
[2024-05-07 05:06] LABS: LACTIC ACID 1.7 mmol/L (0.4-2.0)
[2024-05-07] MEDS ORDERED: Morphine 2 MG/ML SYRINGE IVPUSH PRN (05:31)
[2024-05-07 05:45] VITALS: BP 136/86; PULSE 90
[2024-05-07] MEDS: Tamsulosin 0.4 MG Cap.ER PO ONE (05:47)
[2024-05-07 07:29] LABS: APPEARANCE,URINE CLOUDY; BILIRUBIN,URINE NEGATIVE (NEGATIVE); COLOR,URINE BROWN; GLUCOSE,URINE NEGATIVE (NEGATIVE); KETONES,URINE NEGATIVE (NEGATIVE); LEUKOCYTE ESTERASE,URINE NEGATIVE (NEGATIVE); NITRITE,URINE NEGATIVE (NEGATIVE); OCCULT BLOOD,URINE LARGE (NEGATIVE); PH,URINE 5.5 (5.0-9.0); PROTEIN,URINE 100 mg/dL (NEGATIVE); UROBILINOGEN,URINE 0.2 E.U./dL (0.2-1.0)
[2024-05-07 07:38] LABS: AMORPHOUS SEDIMENT,URINE MANY /HPF (0/HPF); BACTERIA,URINE NOT SEEN /HPF (NONE TO FEW); EPITHELIAL CELLS,URINE MANY /LPF; RBC,URINE >100 /HPF; WBC,URINE 0-5 /HPF
[2024-05-07] MEDS: Potassium Bicarbonate/Cit Ac 20 MEQ Effervescent Tab PO ONE ×2 (10:42→11:33)
== END 2024-05-07 11:30 | disposition home or self-care (01) ==
LOC: LL.ED 03:01
DX: N13.2 Hydronephrosis with renal and ureteral calculous obstruction (principal); F17.210 Nicotine dependence, cigarettes, uncomplicated; J44.9 Chronic obstructive pulmonary disease, unspecified; K21.9 Gastro-esophageal reflux disease without esophagitis; I10 Essential (primary) hypertension; Z79.899 Other long term (current) drug therapy; Z88.0 Allergy status to penicillin; Z91.013 Allergy to seafood
CPT/HCPCS: 36415; 74176; 80053; 81001; 83605; 83735; 85025; 96374; 96375; 99284; A9270; J1885; J2270; J2405; J7030; J3490

== ENCOUNTER 2024-06-02 04:08 | Emergency (ER) | payer BC ==
[2024-06-02] MEDS: Ketorolac 30 MG/ML SDV IVPUSH ONE (04:20)
[2024-06-02] MEDS: Sodium Chloride 0.9% 10 ML Syringe FLUSH PRN (04:21)
[2024-06-02 04:40] LABS: BASOPHILS ABSOLUTE AUTO 0.07 K/uL (0.00-0.20); BASOPHILS PERCENT AUTO 0.6 % (0.0-2.0); EOSINOPHILS ABSOLUTE AUTO 0.22 K/uL (0.00-0.50); EOSINOPHILS PERCENT AUTO 1.8 % (0.0-5.0); HEMATOCRIT 40.9 % (34.0-46.0); HEMOGLOBIN 13.8 g/dL (11.7-15.5); LYMPHOCYTES ABSOLUTE AUTO 1.68 K/uL (0.50-3.50); LYMPHOCYTES PERCENT AUTO 13.7 % (10.0-50.0); MEAN CORPUSCULAR HEMOGLOBIN 31.1 pg (28.2-33.3); MEAN CORPUSCULAR HGB CONC 33.7 g/dL (31.7-36.0); MEAN CORPUSCULAR VOLUME 92.1 fL (84.0-98.0); MONOCYTES ABSOLUTE AUTO 0.84 K/uL (0.00-1.00); MONOCYTES PERCENT AUTO 6.8 % (2.0-14.0); NEUTROPHILS ABSOLUTE AUTO 9.49 K/uL (1.40-7.00); NEUTROPHILS PERCENT AUTO 77.1 % (45.0-80.0); PLATELET COUNT,PLT 294 K/uL (150-350); RED BLOOD CELL COUNT 4.44 M/uL (3.77-5.09); RED CELL DISTRIBUTION WIDTH 13.1 % (11.2-14.1); WHITE BLOOD CELL COUNT,WBC 12.3 K/uL (4.0-10.2)
[2024-06-02] MEDS: Ondansetron 4 MG/2 ML SDV IVPUSH ONE (04:40)
[2024-06-02] MEDS ORDERED: Tamsulosin 0.4 MG Cap.ER PO ONE (04:46)
[2024-06-02] MEDS ORDERED: Naloxone 0.4 MG/ML SDV IVPUSH PRN (04:50)
[2024-06-02] MEDS ORDERED: Sodium Chloride 0.9% 1,000 ML IV ONE (04:51)
[2024-06-02 04:53] LABS: ALANINE AMINOTRANSFERASE,ALT 29 U/L (12-78); ALBUMIN 3.8 g/dL (3.4-5.0); ALKALINE PHOSPHATASE 70 IU/L (46-116); ANION GAP 11.5 meq/L (7-15); ASPARTATE AMNIOTRANSFERASE,AST 14 U/L (15-37); BILIRUBIN TOTAL 0.3 mg/dL (0.2-1.0); BLOOD UREA NITROGEN,BUN 31 mg/dL (7-18); CALCIUM 9.3 mg/dL (8.5-10.1); CARBON DIOXIDE,CO2 23.5 mmol/L (21.0-32.0); CHLORIDE,CL 106 mmol/L (98-107); CREATININE 0.96 mg/dL (0.51-1.17); GLUCOSE RANDOM 121 mg/dL (70-99); PROTEIN TOTAL,TP 6.8 g/dL (6.4-8.2); SODIUM,NA 141 mmol/L (136-145)
[2024-06-02 04:54] LABS: ESTIMATED GFR 67 mL/min (>=60)
[2024-06-02] MEDS: HYDROmorphone 0.5 MG/0.5 ML Syringe IVPUSH PRN (05:23)
[2024-06-02 07:28] LABS: APPEARANCE,URINE SLIGHTLY CLOUDY; BILIRUBIN,URINE SMALL (NEGATIVE); COLOR,URINE YELLOW; GLUCOSE,URINE NEGATIVE (NEGATIVE); KETONES,URINE NEGATIVE (NEGATIVE); LEUKOCYTE ESTERASE,URINE NEGATIVE (NEGATIVE); NITRITE,URINE NEGATIVE (NEGATIVE); OCCULT BLOOD,URINE LARGE (NEGATIVE); PH,URINE 5.5 (5.0-9.0); PROTEIN,URINE 100 mg/dL (NEGATIVE); UROBILINOGEN,URINE 0.2 E.U./dL (0.2-1.0)
[2024-06-02 07:45] LABS: RBC,URINE >100 /HPF; WBC,URINE 0-5 /HPF
[2024-06-02 07:46] LABS: AMORPHOUS SEDIMENT,URINE MODERATE /HPF (0/HPF); BACTERIA,URINE FEW /HPF (NONE TO FEW); EPITHELIAL CELLS,URINE FEW /LPF
[2024-06-02 11:45] VITALS: BP 128/59; PULSE 66
== END 2024-06-02 12:05 ==
LOC: LL.ED 04:08
DX: N13.2 Hydronephrosis with renal and ureteral calculous obstruction (principal); I27.20 Pulmonary hypertension, unspecified; J44.9 Chronic obstructive pulmonary disease, unspecified; K21.9 Gastro-esophageal reflux disease without esophagitis; F17.210 Nicotine dependence, cigarettes, uncomplicated; Z79.899 Other long term (current) drug therapy; Z88.0 Allergy status to penicillin; Z91.013 Allergy to seafood
CPT/HCPCS: 36415; 74176; 80053; 81001; 85025; 96374; 96375; 99285; J1171; J1885; J2405; 99284; J3490

== ENCOUNTER 2024-06-27 06:49 | Observation (INO) | payer BC ==
[2024-06-27] MEDS: Ondansetron 4 MG/2 ML SDV IVPUSH ONE (07:02)
[2024-06-27] MEDS: Sodium Chloride 0.9% 1,000 ML IV ONE (07:03)
[2024-06-27] MEDS: Meclizine 25 MG Tab PO ONE (07:14)
[2024-06-27] MEDS: Ondansetron 4 MG/2 ML SDV ONE (07:14)
[2024-06-27 07:23] LABS: BASOPHILS ABSOLUTE AUTO 0.06 K/uL (0.00-0.20); BASOPHILS PERCENT AUTO 0.8 % (0.0-2.0); EOSINOPHILS ABSOLUTE AUTO 0.16 K/uL (0.00-0.50); EOSINOPHILS PERCENT AUTO 2.3 % (0.0-5.0); HEMATOCRIT 41.2 % (34.0-46.0); HEMOGLOBIN 13.7 g/dL (11.7-15.5); IMMATURE GRAN ABSOLUTE AUTO 0.02 10^3/uL (0.00-0.50); IMMATURE GRAN PERCENT AUTO 0.3 % (0.0-5.0); LYMPHOCYTES ABSOLUTE AUTO 1.11 K/uL (0.50-3.50); LYMPHOCYTES PERCENT AUTO 15.6 % (10.0-50.0); MEAN CORPUSCULAR HEMOGLOBIN 30.3 pg (28.2-33.3); MEAN CORPUSCULAR HGB CONC 33.3 g/dL (31.7-36.0); MEAN CORPUSCULAR VOLUME 91.2 fL (84.0-98.0); MONOCYTES ABSOLUTE AUTO 0.49 K/uL (0.00-1.00); MONOCYTES PERCENT AUTO 6.9 % (2.0-14.0); NEUTROPHILS ABSOLUTE AUTO 5.26 K/uL (1.40-7.00); NEUTROPHILS PERCENT AUTO 74.1 % (45.0-80.0); PLATELET COUNT,PLT 282 K/uL (150-350); RED BLOOD CELL COUNT 4.52 M/uL (3.77-5.09); RED CELL DISTRIBUTION WIDTH 12.2 % (11.2-14.1); WHITE BLOOD CELL COUNT,WBC 7.1 K/uL (4.0-10.2)
[2024-06-27 07:42] LABS: ALBUMIN 3.7 g/dL (3.4-5.0); BILIRUBIN TOTAL 0.6 mg/dL (0.2-1.0); CALCIUM 8.9 mg/dL (8.5-10.1); CARBON DIOXIDE,CO2 25.8 mmol/L (21.0-32.0); CREATININE 0.82 mg/dL (0.51-1.17); EST CRCL DRUG DOSING (CG) 66.59 mL/min; POTASSIUM,K 3.3 mmol/L (3.5-5.1); PROTEIN TOTAL,TP 6.5 g/dL (6.4-8.2)
[2024-06-27 07:44] LABS: ANION GAP 13.5 meq/L (7-15)
[2024-06-27] MEDS: Carbamide Peroxide 6.5% Otic Soln 15 ML Bottle EARLF ONE (08:30)
[2024-06-27 08:51] LABS: APPEARANCE,URINE CLEAR; BILIRUBIN,URINE NEGATIVE (NEGATIVE); COLOR,URINE YELLOW; GLUCOSE,URINE NEGATIVE (NEGATIVE); KETONES,URINE NEGATIVE (NEGATIVE); LEUKOCYTE ESTERASE,URINE SMALL (NEGATIVE); NITRITE,URINE NEGATIVE (NEGATIVE); OCCULT BLOOD,URINE LARGE (NEGATIVE); PROTEIN,URINE 100 mg/dL (NEGATIVE); UROBILINOGEN,URINE 0.2 E.U./dL (0.2-1.0)
[2024-06-27 08:59] LABS: BACTERIA,URINE FEW /HPF (NONE TO FEW); EPITHELIAL CELLS,URINE MANY /LPF; RBC,URINE >100 /HPF; WBC,URINE 0-5 /HPF
[2024-06-27] MEDS: Potassium Bicarbonate/Cit Ac 20 MEQ Effervescent Tab PO ONE (09:15)
[2024-06-27] MEDS: Diazepam 5 MG Tab PO ONE ×2 (09:18→12:26)
[2024-06-27] MEDS ORDERED: Acetaminophen 325 MG Tab PO PRN (11:37)
[2024-06-27] MEDS ORDERED: Oxybutynin 5 MG Tab.ER PO PRN (11:59)
[2024-06-27] MEDS: methylPREDNISolone Sodium Succinate 40 MG/1 ML SDV IVPUSH ONE (12:25)
[2024-06-27] MEDS: Ondansetron 4 MG/2 ML SDV IVPUSH PRN (12:25)
[2024-06-27] MEDS: Sodium Chloride 0.9% 10 ML Syringe FLUSH PRN (12:25)
[2024-06-27] MEDS: Meclizine 25 MG Tab PO PRN (12:26)
[2024-06-27] MEDS: Melatonin 3 MG Tab PO PRN (21:43)
[2024-06-28] MEDS: methylPREDNISolone Sodium Succinate 40 MG/1 ML SDV IVPUSH ONE (07:39)
[2024-06-28] MEDS: Hydrochlorothiazide 25 MG Tab PO SCH (07:43)
[2024-06-28] MEDS: Lisinopril 10 MG Tab PO SCH (07:43)
[2024-06-28 07:45] VITALS: BP 129/77
[2024-06-28] MEDS ORDERED: Non-Formulary Medication 1 Each (Lisinopril/Hydrochlorothiazide 1 EACH Tablet) PO SCH (08:00)
[2024-06-28 08:26] LABS: CALCIUM 9.2 mg/dL (8.5-10.1); CARBON DIOXIDE,CO2 24.8 mmol/L (21.0-32.0); CREATININE 0.76 mg/dL (0.51-1.17); EST CRCL DRUG DOSING (CG) 71.85 mL/min; POTASSIUM,K 3.9 mmol/L (3.5-5.1)
[2024-06-28 08:28] LABS: BASOPHILS ABSOLUTE AUTO 0.04 K/uL (0.00-0.20); BASOPHILS PERCENT AUTO 0.4 % (0.0-2.0); EOSINOPHILS ABSOLUTE AUTO 0.06 K/uL (0.00-0.50); EOSINOPHILS PERCENT AUTO 0.6 % (0.0-5.0); HEMATOCRIT 39.6 % (34.0-46.0); IMMATURE GRAN ABSOLUTE AUTO 0.02 10^3/uL (0.00-0.50); IMMATURE GRAN PERCENT AUTO 0.2 % (0.0-5.0); LYMPHOCYTES ABSOLUTE AUTO 2.18 K/uL (0.50-3.50); LYMPHOCYTES PERCENT AUTO 22.8 % (10.0-50.0); MEAN CORPUSCULAR HEMOGLOBIN 30.7 pg (28.2-33.3); MEAN CORPUSCULAR HGB CONC 32.8 g/dL (31.7-36.0); MEAN CORPUSCULAR VOLUME 93.4 fL (84.0-98.0); MONOCYTES ABSOLUTE AUTO 0.63 K/uL (0.00-1.00); MONOCYTES PERCENT AUTO 6.6 % (2.0-14.0); NEUTROPHILS ABSOLUTE AUTO 6.65 K/uL (1.40-7.00); NEUTROPHILS PERCENT AUTO 69.4 % (45.0-80.0); PLATELET COUNT,PLT 256 K/uL (150-350); RED BLOOD CELL COUNT 4.24 M/uL (3.77-5.09); RED CELL DISTRIBUTION WIDTH 12.4 % (11.2-14.1); WHITE BLOOD CELL COUNT,WBC 9.6 K/uL (4.0-10.2)
[2024-06-28 08:36] LABS: ANION GAP 13.1 meq/L (7-15)
[2024-06-28 09:26] VITALS: PULSE 79
[2024-06-28] MEDS: Take Home: Meclizine HCl 25 MG, 6 Tab Pack PO ONE (10:55)
== END 2024-06-28 11:05 | disposition home or self-care (01) ==
LOC: LL.ED 06:49 → LL.MS 11:02
PROVIDERS: ADMIT Emergency Medicine; ATTEND Emergency Medicine
DX: R55 Syncope and collapse (principal); E87.6 Hypokalemia; I10 Essential (primary) hypertension; K21.9 Gastro-esophageal reflux disease without esophagitis; J44.9 Chronic obstructive pulmonary disease, unspecified; F17.210 Nicotine dependence, cigarettes, uncomplicated; Z79.899 Other long term (current) drug therapy; Z91.013 Allergy to seafood; Z88.0 Allergy status to penicillin
CPT/HCPCS: 36415; 70450; 80048; 80053; 81001; 83735; 85025; A9270; J2405; J2919; J7030; 96361; 96374; 99223; 99239; 99285-25; J3490

== ENCOUNTER 2025-03-02 00:43 | Emergency (ER) | payer BC ==
[2025-03-02] MEDS: Ondansetron 4 MG Tab.DIS PO ONE (01:04)
[2025-03-02 01:14] LABS: BASOPHILS ABSOLUTE AUTO 0.05 K/uL (0.00-0.20); BASOPHILS PERCENT AUTO 0.6 % (0.0-2.0); EOSINOPHILS ABSOLUTE AUTO 0.13 K/uL (0.00-0.50); EOSINOPHILS PERCENT AUTO 1.5 % (0.0-5.0); IMMATURE GRAN ABSOLUTE AUTO 0.02 10^3/uL (0.00-0.04); IMMATURE GRAN PERCENT AUTO 0.2 % (0.0-0.4); LYMPHOCYTES ABSOLUTE AUTO 1.64 K/uL (0.50-3.50); LYMPHOCYTES PERCENT AUTO 18.8 % (10.0-50.0); MONOCYTES ABSOLUTE AUTO 0.60 K/uL (0.00-1.00); MONOCYTES PERCENT AUTO 6.9 % (2.0-14.0); NEUTROPHILS ABSOLUTE AUTO 6.28 K/uL (1.40-7.00); NEUTROPHILS PERCENT AUTO 72.0 % (45.0-80.0); PLATELET COUNT,PLT 250 K/uL (150-350); RED BLOOD CELL COUNT 4.53 M/uL (3.77-5.09); RED CELL DISTRIBUTION WIDTH 13.0 % (11.2-14.1); WHITE BLOOD CELL COUNT,WBC 8.7 K/uL (4.0-10.2)
[2025-03-02 01:19] LABS: APPEARANCE,URINE CLOUDY; GLUCOSE,URINE NEGATIVE (NEGATIVE); OCCULT BLOOD,URINE NEGATIVE (NEGATIVE)
[2025-03-02 01:33] LABS: ALANINE AMINOTRANSFERASE,ALT 19 U/L (12-78); ASPARTATE AMNIOTRANSFERASE,AST 14 U/L (15-37); BILIRUBIN TOTAL 0.6 mg/dL (0.2-1.0); BLOOD UREA NITROGEN,BUN 12 mg/dL (7-18); CARBON DIOXIDE,CO2 24.4 mmol/L (21.0-32.0); CHLORIDE,CL 103 mmol/L (98-107); CREATININE 0.76 mg/dL (0.51-1.17); ESTIMATED GFR 89 mL/min (>=60); GLUCOSE RANDOM 103 mg/dL (70-99); POTASSIUM,K 3.1 mmol/L (3.5-5.1); PROTEIN TOTAL,TP 6.6 g/dL (6.4-8.2); SODIUM,NA 140 mmol/L (136-145)
[2025-03-02] MEDS ORDERED: Sodium Chloride 0.9% 10 ML Syringe FLUSH PRN (01:44)
[2025-03-02] MEDS: Potassium Chloride 20 MEQ Tab.ER PO ONE (01:53)
[2025-03-02] MEDS: Loperamide 2 MG Tab PO ONE (01:53)
[2025-03-02] MEDS: Ketorolac 15 MG/ML SDV IVPUSH ONE (02:01)
[2025-03-02] MEDS: Potassium Bicarbonate/Cit Ac 20 MEQ Effervescent Tab PO ONE (02:07)
[2025-03-02 02:27] VITALS: BP 117/63; PULSE 52
== END 2025-03-02 02:35 | disposition home or self-care (01) ==
LOC: LL.ED 00:43
DX: E87.6 Hypokalemia (principal); R19.7 Diarrhea, unspecified; I10 Essential (primary) hypertension; J44.9 Chronic obstructive pulmonary disease, unspecified; K21.9 Gastro-esophageal reflux disease without esophagitis; M19.90 Unspecified osteoarthritis, unspecified site; F17.200 Nicotine dependence, unspecified, uncomplicated; Z88.0 Allergy status to penicillin; Z91.013 Allergy to seafood; Z79.899 Other long term (current) drug therapy
CPT/HCPCS: 36415; 74019; 80053; 81001; 84484; 85025; 87086; 87088; 87186; 96374; 96375; 99284; 99284-25; A9270-GY; J1885; J2470; J7040; Q0169